=== PATIENT | male | born 1960 | race Caucasian/White ===

== ENCOUNTER 2017-08-02 06:34 | Emergency (ER) | payer OTHER ==
[~2017-08-02] VITALS: Ht 175.3 cm; Wt 95.2 kg
[2017-08-02] MEDS ORDERED: CLON1 PO (07:16)
[2017-08-02] MEDS ORDERED: ALBU90OI6 INH (07:16)
== END 2017-08-02 10:24 | disposition home or self-care (01) ==
LOC: ER 06:34
DX: S81.811A Laceration without foreign body, right lower leg, initial encounter (principal); S70.12XA Contusion of left thigh, initial encounter; S80.12XA Contusion of left lower leg, initial encounter; Z23 Encounter for immunization; F41.9 Anxiety disorder, unspecified; Z79.899 Other long term (current) drug therapy; W17.89XA Other fall from one level to another, initial encounter; Y99.0 Civilian activity done for income or pay
CPT/HCPCS: 12001; 73552; 90471; 90714; 99283